=== PATIENT | male | born 2000 | race Asian ===

== ENCOUNTER 2024-02-11 19:51 | Emergency (ER) | payer SELFPAY ==
[~2024-02-11] VITALS: Ht 172.7 cm; Wt 69.0 kg
[2024-02-11 21:11] VITALS: O2SAT 100
[2024-02-11] MEDS ORDERED: KETOROLAC 15MG/ML VIAL IM ONE (21:45)
[2024-02-11] MEDS ORDERED: KETOROLAC 15MG/ML VIAL IM NR (21:45)
[2024-02-11] MEDS ORDERED: LIDO700A15 TP (23:48)
[2024-02-11] MEDS ORDERED: NAPR-1176 MT (23:48)
[2024-02-12 00:11] VITALS: BP 125/67; PULSE 74; RESP 18; TEMP 36.94740; O2SAT 100
== END 2024-02-12 00:12 | disposition home or self-care (01) ==
LOC: ER 19:51
DX: M25.562 Pain in left knee (principal); M25.561 Pain in right knee; Z79.1 Long term (current) use of non-steroidal anti-inflammatories (NSAID); V49.59XA Passenger injured in collision with other motor vehicles in traffic accident, initial encounter; Y93.89 Activity, other specified; Y92.89 Other specified places as the place of occurrence of the external cause; Y99.8 Other external cause status
CPT/HCPCS: 99283; 73564; J1885